=== PATIENT | female | born 1945 | race Caucasian/White ===

== ENCOUNTER 2018-12-02 08:43 | Day surgery (SDC) | payer MEDICARE ==
[2018-12-02] MEDS ORDERED: MIDAZOLAM 2 MG/2 ML VIAL IVP ONE (08:44)
[2018-12-02] MEDS ORDERED: PROPOFOL 200 MG/20 ML VIAL IVP ONE (08:44)
[2018-12-02] MEDS ORDERED: fentaNYL 100 MCG/2 ML VIAL IVP ONE (08:44)
[2018-12-02] MEDS ORDERED: DEXAMETHASONE 4 MG/ML VIAL IVP ONE (08:44)
--- NOTE | 2018-12-02 08:59 | ANESTHESIA ---
Pre-Anesthesia VS, & Labs Weight (kg) 0 g Home Medications and Allergies Home Medications: Ambulatory Orders Diltiazem HCl [Diltiazem ER] 60 mg PO DAILY PRN 11/18/18 Diltiazem HCl [Diltiazem ER] 60 mg PO DAILY PRN 11/18/18 Allergies/Adverse Reactions: Allergies Allergy/AdvReac Type Severity Reaction Status Date / Time adhesive tape Allergy Rash, burn Verified 11/18/18 10:43 codeine AdvReac Nausea, Verified 11/18/18 10:43 vomiting Anes History & Medical History - Medical History Cardiovascular: reports: Arrhythmia, Other Pulmonary: reports: None Gastrointestinal: reports: None Urinary: reports: Other Musculoskeletal: reports: Osteoarthritis Endocrine/Autoimmune: reports: None Skin: reports: None - Surgical History Gynecologic: Hysterectomy Orthopedic: Arthroscopic surgery, Other
[2018-12-02] MEDS ORDERED: LACTATED RINGERS 1,000 ML IV ONE (09:10)
[2018-12-02] MEDS ORDERED: SODIUM CHLORIDE FLUSH 0.9% 10 ML SYRINGE ONE (09:12)
[2018-12-02] MEDS ORDERED: CEFAZOLIN SODIUM IN 0.9 % NACL 2 GM/100 ML BAG IV ONE (09:17)
[2018-12-02] MEDS ORDERED: BUFFERED LIDOCAINE 10 ML SYRINGE ONE (10:01)
[2018-12-02] MEDS ORDERED: LIDOCAINE MPF 1%-EPI 1:200000 30 ML VIAL ONE (10:40)
[2018-12-02] MEDS ORDERED: BUPIVACAINE 0.5% PF 10 ML VIAL ONE (10:40)
--- NOTE | 2018-12-02 11:24 | ANESTHESIA ---
Pre-Anesthesia VS, & Labs - Diagnosis left breast cancer - Procedure left breast lumpectomy, sentinel lymph node biopsy, needle localization Vital Signs: Temp Pulse Resp BP Pulse Ox 36.3 C L 54 L 16 128/80 98 12/02/18 08:54 12/02/18 08:54 12/02/18 08:54 12/02/18 08:54 12/02/18 08:54 Height 5 ft 5 in Weight (kg) 78.9 kg - Is Patient ?: No Home Medications and Allergies Home Medications: Ambulatory Orders Diltiazem HCl [Diltiazem ER] 60 mg PO DAILY PRN 11/18/18 Diltiazem HCl [Diltiazem ER] 60 mg PO DAILY PRN 11/18/18 Allergies/Adverse Reactions: Allergies Allergy/AdvReac Type Severity Reaction Status Date / Time adhesive tape Allergy Rash, burn Verified 11/18/18 10:43 codeine AdvReac Nausea, Verified 11/18/18 10:43 vomiting Anes History & Medical History - Medical History Cardiovascular: reports: Hypertension (paroxysmal tachycardia), Arrhythmia, Other Pulmonary: reports: None Gastrointestinal: reports: None Urinary: reports: Other Musculoskeletal: reports: Osteoarthritis Endocrine/Autoimmune: reports: None Skin: reports: None - Surgical History Gynecologic: Hysterectomy Orthopedic: Arthroscopic surgery, Other Exam Mouth Openin Fingerbreadth Mallampati classification: III Respiratory: Lungs clear Cardiovascular: Regular rate Plan Anesthesia Type: General Consent for Procedure(s) Verified and Reviewed: Yes Code Status: Attempt Resuscitation ASA classification: 2-Mild systemic disease Is this case an emergency?: No
[2018-12-02] MEDS ORDERED: BUFFERED LIDOCAINE 10 ML SYRINGE IU ONE ×2 (12:38)
[2018-12-02] MEDS ORDERED: BUPIVACAINE 0.5% PF 30 ML VIAL SUBQ ONE ×2 (13:04→13:50)
[2018-12-02] MEDS ORDERED: LIDOCAINE MPF 1%-EPI 1:200000 30 ML VIAL SUBQ ONE ×2 (13:05→13:50)
[2018-12-02] MEDS ORDERED: oxyCODONE 5 MG TABLET PO PRN (13:47)
[2018-12-02] MEDS ORDERED: ONDANSETRON 4 MG/2 ML VIAL IVP PRN (13:47)
--- NOTE | 2018-12-02 14:07 | Nuclear Medicine Report ---
Reason: BREAST CANCER Procedure Date: 12/02/2018 Accession Number: [id number] / [id number] Procedure: NM - Lymph Node Scintigraphy CPT Code: FULL RESULT: EXAM: SENTINEL LYMPH NODE RADIOTRACER INJECTION WITH IMAGING EXAM DATE: 12/02/2018 11:33 AM. CLINICAL HISTORY: Left breast cancer. COMPARISON: None. TECHNIQUE: The injection site of the left periareolar breast was cleansed according to protocol. Next, a total of 1.5 mCi Tc-99m in 0.5 cc saline was injected into the above-noted site. After appropriate delay, the patient was imaged according to the protocol. FINDINGS: There is visualization of at least 2 left axillary lymph nodes. In addition, there are at least 2 lymphatic channels that course anteriorly to the base of the neck and across midline to the base of the right neck. These findings were discussed with the surgeon. The patient tolerated the procedure well. IMPRESSION: 1. Technically successful left breast lymphoscintigraphy. 2. There are at least 2 left axillary sentinel lymph nodes. See above comments. RADIA
[2018-12-02] MEDS ORDERED: ACETAMINOPHEN 1,000 MG/100 ML 100 ML IV ONE (14:28)
[2018-12-02] MEDS ORDERED: HYDROmorphone 0.5 MG/0.5 ML SYRINGE ONE (14:40)
--- NOTE | 2018-12-02 15:17 | Mammography Report ---
Reason: LEFT BREAST SPECIMEN Procedure Date: 12/02/2018 Accession Number: [id number] / [id number] Procedure: JHONATAN - Breast Specimen Surgical CPT Code: FULL RESULT: EXAM: Wire Localization LT, Breast Specimen Surgical DATE: 12/02/2018 11:42 AM CLINICAL HISTORY: Biopsy-proven left breast cancer. A left breast core localization procedure will be performed today prior to excisional surgical left breast biopsy. TECHNIQUE: Informed consent was obtained. Using sterile technique and local anesthetic, I placed a 20-gauge needle adjacent to the biopsy-proven left breast cancer which is located in the upper inner quadrant left breast. After mammographic confirmation of needle tip, I deployed a hook wire which was secured to the skin. No complications. Later today a left breast specimen radiograph was performed. PARENCHYMAL PATTERN: (A) - The breasts demonstrate scattered fibroglandular densities bilaterally. FINDINGS: There is a small spiculated mass in the upper inner quadrant left breast with a postbiopsy marker clip. Satisfactory wire position. Following excisional biopsy, a breast specimen radiograph was performed and reveals resection of the targeted lesion. This was communicated to the operating room. IMPRESSION: Known biopsy - proven malignancy. BI-RADS category 6. RECOMMENDATION: (CLIN) - Clinical follow-up for symptoms is recommended. BI-RADS CATEGORY: (6) - Known biopsy/ proven malignancy. STANDARD QUALIFYING STATEMENTS: 1. This examination was not reviewed with the aid of Computer-Aided Detection (CAD). 2. A negative or benign imaging report should not preclude biopsy if clinically suspicious findings are present. 3. Dense breasts may obscure an underlying neoplasm. 4. This examination was reviewed without the aid of 3D breast imaging (tomosynthesis).
--- NOTE | 2018-12-02 15:17 | Mammography Report ---
Reason: LEFT BREAST NEEDLE LOCALIZATION Procedure Date: 12/02/2018 Accession Number: [id number] / [id number] Procedure: JHONATAN - Wire Localization LT CPT Code: 62894 FULL RESULT: EXAM: Wire Localization LT, Breast Specimen Surgical DATE: 12/02/2018 11:42 AM CLINICAL HISTORY: Biopsy-proven left breast cancer. A left breast core localization procedure will be performed today prior to excisional surgical left breast biopsy. TECHNIQUE: Informed consent was obtained. Using sterile technique and local anesthetic, I placed a 20-gauge needle adjacent to the biopsy-proven left breast cancer which is located in the upper inner quadrant left breast. After mammographic confirmation of needle tip, I deployed a hook wire which was secured to the skin. No complications. Later today a left breast specimen radiograph was performed. PARENCHYMAL PATTERN: (A) - The breasts demonstrate scattered fibroglandular densities bilaterally. FINDINGS: There is a small spiculated mass in the upper inner quadrant left breast with a postbiopsy marker clip. Satisfactory wire position. Following excisional biopsy, a breast specimen radiograph was performed and reveals resection of the targeted lesion. This was communicated to the operating room. IMPRESSION: Known biopsy - proven malignancy. BI-RADS category 6. RECOMMENDATION: (CLIN) - Clinical follow-up for symptoms is recommended. BI-RADS CATEGORY: (6) - Known biopsy/ proven malignancy. STANDARD QUALIFYING STATEMENTS: 1. This examination was not reviewed with the aid of Computer-Aided Detection (CAD). 2. A negative or benign imaging report should not preclude biopsy if clinically suspicious findings are present. 3. Dense breasts may obscure an underlying neoplasm. 4. This examination was reviewed without the aid of 3D breast imaging (tomosynthesis).
[2018-12-02] MEDS ORDERED: oxyCODONE 5 MG TABLET ONE (16:02)
[2018-12-02 16:27] VITALS: BP 133/69
--- NOTE | 2018-12-03 17:30 | OPERATIVE REPORT ---
Operative Report - General Procedure Date: 12/02/18 Planned Procedure: Left breast lumpectomy and sentinel node biopsy after needle localization and mapping. Pre-Op Diagnosis: Biopsy proved left breast cancer Procedure Performed: Left breast lumpectomy and sentinel node biopsy after needle localization and mapping. Post Op Diagnosis: Same - Procedure Note Primary Surgeon: Joe Anesthesia Technique: General LMA, Local Pathology: 1. Axillary tissue/enlarged axillary node from level 1 2. [place] node #1. Obtained from level 3. 10 [place] [address] 3. [place] node #2. Obtained from level 2 10 [place] [address] 4. Left breast lesion marked with a short stitch superior and a long stitch lateral. The wire castillo the medial surface Estimated Blood Loss (mL): 25 Indications: Biopsy proven left breast cancer Findings: Mass removed from the dermis anteriorly and the retromammary bursa posteriorly Complications: None apparent - Other Other Information/Narrative: After obtaining informed consent, the patient is brought to the operating room and placed in the supine position on the operating table. Following successful induction of general anesthesia, appropriate padding of all bony prominences, and placement of appropriate monitors, the left chest and axilla were prepped and draped in the standard surgical fashion. A timeout was held per SCOAP protocol. All elements of the surgical safety checklist were observed before, during, and following the procedure. We began with the sentinel node biopsy. The neoprobe was used to identify the sentinel nodes in the left axilla. There were 2 areas that seem to be the most active. Both were in the deep axillary lymphatic contents. An incision was created in a natural skin line in the axilla following infiltration with local anesthetic. This was carried through the skin and subcutaneous tissue and the axillary fat pad was entered without difficulty. The first sentinel node was identified at level 3, deep to the pectoralis minor muscle.The node was carefully liberated from the surrounding structures by addressing all afferent and efferent lymphatics and vasculature with clips prior to division.The node appeared grossly normal and had a 10- second count of 43,312. Survey of the axilla revealed a second active node. This was in level 2 of the axillary packet.This node was liberated in the same manner as the first by carefully addressing all lymphatics and vasculature prior to division. It had a 10-second count of 39,971.Found in the room was noted to be 0. The background in the axilla was approximately 18.No other nodes demonstrated significant activity by criteria for the sentinel procedure. The axillary incision was irrigated with warm water. It was closed in 2 layers with Vicryl and Monocryl suture. We turned our attention to the breast incisioThe patient has expressed a desire not to have any sort of oncoplastic incision. For this reason a curvilinear incision was created in the medial superior portion of the left breast just medial and inferior to the localizing wire. This was anesthetized first with a mixture of local anesthetics. The incision was carried down through the skin and through the dermis. The mass, wire, and clip were liberated from the underlying dermis and overlying pectoralis fascia with a combination of sharp dissection and cautery. The mass was submitted to radiology and we received a call from the department indicating that all target structures were contained within the specimen .The specimen was transferred to formalin and submitted to pathology. The wound was checked for hemostasis. It was then closed in 2 layers with Vicryl and Monocryl sutures and Dermabond was applied to the skin. The patient's chest was wrapped with an Shaka bandage and a pressure dressing applied.All sponge, needle, and instrument counts were correct at the conclusion of the case. The patient was allowed awaken from anesthesia without difficulty and taken to the postanesthesia care unit in good condition.
== END 2018-12-02 08:44 | disposition home or self-care (01) ==
LOC: DI 08:43
PROVIDERS: ATTEND Surgery
PROC: 0HBU0ZZ Excision of Left Breast, Open Approach (ICD-10-PCS; principal; 2018-12-02 11:45)
PROC: 07B60ZX Excision of Left Axillary Lymphatic, Open Approach, Diagnostic (ICD-10-PCS; 2018-12-02 11:45)
DX: C50.212 Malignant neoplasm of upper-inner quadrant of left female breast (principal); F17.210 Nicotine dependence, cigarettes, uncomplicated; E78.00 Pure hypercholesterolemia, unspecified; I10 Essential (primary) hypertension; I47.9 Paroxysmal tachycardia, unspecified
CPT/HCPCS: 19281; 19301; 38525; 76098; 78195; A9270; J0131; J0690; J1170; J7120

== ENCOUNTER 2019-02-03 13:38 | Outpatient (CLI) | payer MEDICARE ==
--- NOTE | 2019-02-03 14:42 | DEXA Report ---
Reason: POSTMENOPAUSAL Procedure Date: 02/03/2019 Accession Number: [id number] / [id number] Procedure: DEX - Dexa Spine and/or Hip CPT Code: Final Report FULL RESULT: EXAM: Dexa Spine and/or Hip DATE: 02/03/2019 2:19 PM CLINICAL HISTORY: The patient is a 73 year-old postmenopausal female. TECHNIQUE: Dual energy x-ray absorptiometry (DXA) was performed on a [employer] System. Regions measured are the AP Spine, femoral neck, and if needed forearm. COMPARISON: None. In accordance with the International Society for Clinical Densitometry (ISCD) guidelines, data from previous exams may be reanalyzed using current recommendations and techniques. This is done to allow a more accurate basis for comparison with the current study. FINDINGS: The data for the lumbar spine is as follows: BMD (g/cm/cm) T-SCORE Z-SCORE REGION L1 0.938 -1.6 -0.3 L2 1.009 -1.6 -0.3 L3 0.957 -2.0 -0.8 L4 1.000 -1.7 -0.4 TOTAL 0.977 -1.7 -0.4 NOTE: All evaluable vertebrae are used for classification The data for the hip is as follows: BMD (g/cm/cm) T-SCORE Z-SCORE REGION Neck 0.783 -1.8 -0.3 TOTAL 0.826 -1.4 -0.1 NOTE: The femoral neck or total proximal femur, whichever is lowest, is used for classification. * Denotes significant change at the 95% confidence level. Denotes dissimilar scan types or analysis methods. IMPRESSION: THE WHO CLASSIFICATION BASED ON THE INTERNATIONAL REFERENCE STANDARD IS OSTEOPENIA. THE FRACTURE RISK IS INCREASED. RECOMMENDATION: Patients with diagnosis of osteoporosis or osteopenia should have regular bone mineral density assessment. For those eligible for Medicare, routine testing is allowed once every 2 years. Testing frequency can be increased for patients who have rapidly progressing disease or for those who are receiving medical therapy to restore bone mass. COMMENT: World Health Organization (WHO) definitions for osteoporosis and osteopenia: NORMAL BMD: T-score at -1.0 or higher, fracture risk is low OSTEOPENIA BMD: T-score between -1.0 and -2.5, fracture risk is increased. OSTEOPOROSIS BMD: T-score at -2.5 or lower, fracture risk is high. National Osteoporosis Foundation recommends: 1. Obtain adequate dietary calcium (at least 1200 mg per day) and vitamin D (400-800 international units per day). 2. Participate, as appropriate, in regular weightbearing and muscle-strengthening exercise. 3. Avoid tobacco use and reduce alcohol and caffeine intake. 4. For more detailed information see the website at www.NOF.org.
== END 2019-02-03 13:39 | disposition home or self-care (01) ==
LOC: DI 13:38
PROVIDERS: ATTEND Internal Medicine Hematology & Oncology
DX: M85.89 Other specified disorders of bone density and structure, multiple sites (principal); C50.912 Malignant neoplasm of unspecified site of left female breast
CPT/HCPCS: 77080

== ENCOUNTER 2023-09-23 14:54 | Outpatient (CLI) | payer MEDICARE ==
--- NOTE | 2023-09-24 11:53 | Mammography Report ---
BILATERAL DIGITAL SCREENING MAMMOGRAM 3D/2D: 09/23/2023 CLINICAL: Routine screening. Personal history of left breast cancer. Comparison is made to exams dated: 09/11/2022 mammogram, 09/08/2021 mammogram, and 09/02/2020 mammogram - [facility]. There are scattered areas of fibroglandular density in both breasts (category b / 25%-50% glandular t issue). There are benign calcifications in both breasts. There also are benign post operative findings in th e left breast. No significant masses, calcifications, or other findings are seen in either breast. There has been no significant interval change. IMPRESSION: BENIGN There is no mammographic evidence of malignancy. A 1 year screening mammogram is recommended. This exam was interpreted at Station ID: [id number]. NOTE: For mammograms, a report in lay terms will be sent to the patient. Approximately 15% of breast malignancies will not be visualized mammographically. In the management of a palpable breast mass, a negative mammogram must not discourage biopsy of a clinically suspicious lesion. Electronically Signed By: Shiva goldstein/pérez:09/24/2023 09:04:43 copy to: EBENEZER BOOKER letter sent: No_Letter ACR BI-RADS Category 2: Benign Finding(s) 3342F PARENCHYMAL PATTERN: (A) - The breast(s) demonstrate(s) scattered fibroglandular densities. BI-RADS CATEGORY: (2) - 2 RECOMMENDATION: (ANNUAL) - Recommend routine annual screening mammography. [id number] 1 year screening LATERALITY: (B)
== END 2023-09-23 14:55 | disposition home or self-care (01) ==
LOC: DI 14:54
DX: Z12.31 Encounter for screening mammogram for malignant neoplasm of breast (principal); R92.323 Mammographic fibroglandular density, bilateral breasts; Z85.3 Personal history of malignant neoplasm of breast